=== PATIENT | male | born 1975 | race Caucasian/White ===

== ENCOUNTER → 2021-05-24 | Outpatient (CLI) | payer OTHER ==
[~2021-05-24] MED LIST: CYMBALTA30 MG PO; FISH OIL 1,0001 EACH PO; FLEXERIL 10 MG10 MG PO; HYDROXYZINE HCL25 MG PO; IVERMECTIN3 MG PO; NEURONTIN 300300 MG PO; NORCO 5-325 TA1 EACH PO; NORVASC 5 MG TAB5 MG PO; TOPROL XL50 MG PO; VOLTAREN EC 5050 MG PO
== END ==
LOC: EXRD 09:09
DX: U07.1 COVID-19 (principal)
CPT/HCPCS: 71046

== ENCOUNTER 2021-06-01 09:10 | Emergency (ER) | payer SELFPAY ==
[2021-06-01 10:03] LABS: HEMOGLOBIN 15.7 gm/dl (14.0-17.5); RED BLOOD COUNT 4.93 M/UL (4.20-5.50)
[2021-06-01 10:30] LABS: BUN/CREATININE RATIO 39 (0-10)
== END 2021-06-01 10:30 | disposition home or self-care (01) ==
LOC: ER1 09:10
PROVIDERS: Physician Assistant
DX: R07.9 Chest pain, unspecified (principal); R06.02 Shortness of breath; E78.5 Hyperlipidemia, unspecified; I10 Essential (primary) hypertension; Z79.82 Long term (current) use of aspirin
CPT/HCPCS: 71045; 80053; 82550; 82553; 83874; 84484; 85025; 93005; 99283

== ENCOUNTER → 2021-08-31 | Outpatient (CLI) | payer OTHER | LOC: US 10:16 | DX: R79.89 Other specified abnormal findings of blood chemistry (principal) | CPT/HCPCS: 93970 ==